=== PATIENT | female | born 1980 | race Caucasian/White ===

== ENCOUNTER → 2016-12-29 | Outpatient (CLI) | payer MEDICARE, MEDICAID | END | disposition home or self-care (01) | LOC: RAD.S 13:58 | DX: N92.0 Excessive and frequent menstruation with regular cycle (principal); N83.01 Follicular cyst of right ovary ==

== ENCOUNTER 2017-04-03 06:46 | Day surgery (SDC) | payer MEDICARE, MEDICAID ==
[~2017-04-03] VITALS: Ht 157.5 cm; Wt 129.3 kg
--- NOTE | 2017-04-23 09:27 | HP ---
ADMIT: 04/03/2017 RM/LOC: [facility] MR#: [id number] [facility]#: [id number] [address] [facility] [address] [place] [id number] MOIRA JOHN [address] [place] [address] Pre-OP History and Physical SEX: F AGE: 36 : 1980 DATE OF SERVICE: CHIEF COMPLAINT: Heavy and painful periods. HISTORY OF PRESENT ILLNESS: This is a 36-year-old female, 6, para 4, AB 2, who initially presented to the clinic for her annual exam. At that time, she did desire her Mirena IUD removed and replaced. Upon further examination, the Mirena IUD was not found to be in her uterus. X-ray confirmed that this was not found in the abdominal or pelvic cavity either. She did report heavy and painful periods at the time of her annual; therefore, once it was deemed that her IUD was not present, she did undergo an endometrial biopsy that showed fragments of benign proliferative endometrium and polypoid fragments of endometrium suggestive of an endometrial polyp. We did discuss treatment options for her heavy periods. Given that it is unknown at what point her IUD fell out, she would like to try replacing the IUD; however, prior to this, she has agreed to a hysteroscopy with D and C and polypectomy. PAST MEDICAL HISTORY: Significant for schizoaffective disorder, depression, seizure disorder, spinal stenosis, and asthma. PAST SURGICAL HISTORY: She had a gastric bypass in 2003, left knee surgery in 2003, right knee surgery in 2009, back surgery x2 in 2005, and cerclage placement x3. SOCIAL HISTORY: She is . She denies tobacco, alcohol, or drug use. ALLERGIES: WELLBUTRIN AND LAMICTAL. CURRENT MEDICATIONS: Vitamin D. 1. Topamax 50 mg daily. 2. Gold River 150 mg every morning. 3. [place] River 300 mg at bedtime. 4. Clonazepam 1 mg b.i.d. 5. Trintellix 20 mg at bedtime. 6. Celebrex 100 mg daily. 7. Latuda 120 mg at bedtime. 8. Flexeril 10 mg at bedtime. 9. Zyrtec 10 mg daily. 10.BuSpar 10 mg t.i.d. 11.Lisinopril/hydrochlorothiazide 20/25 mg at bedtime. 12.Ropinirole 0.5 mg at bedtime. 13.Gabapentin 100 mg b.i.d. 14.Omeprazole 40 mg daily. 15.Tramadol 50 mg as needed. 16.Potassium supplement daily. 17.Vitamin B12 daily. REVIEW OF SYSTEMS: GENERAL: She denies any recent weight gain, weight loss, ADMIT: 04/03/2017 RM/LOC: [facility] MR#: [id number] [address] [id number] MOIRA JOHN [address] [place] [address] Pre-OP History and Physical SEX: F AGE: 36 : 1980 fevers, or chills. HEENT: She denies headaches, vision changes, difficulty swallowing, or sore throat. NECK: She denies neck pain or stiffness. RESPIRATORY: She denies coughing, shortness of breath, or wheezing. CARDIOVASCULAR: She denies chest pain, palpitations, or shortness of breath. GASTROINTESTINAL: She denies abdominal pain, nausea, vomiting, constipation, diarrhea, and blood in her stools. FEMALE GENITOURINARY: She does have heavy and painful periods as per HPI. She denies pelvic pain, dysuria, frequency, urgency, or hematuria. MUSCULOSKELETAL: She denies joint pain, muscle pain, or muscle weakness. NEUROLOGIC: She denies dizziness or weakness in her extremities. ENDOCRINE: She denies history of thyroid disorders. HEMATOLOGIC: She denies history of anemia, blood clots, prolonged or spontaneous bleeding. PHYSICAL EXAMINATION: VITAL SIGNS: Height is 62 inches, weight 287 pounds, body mass index of 52.5, and blood pressure is 126/60. GENERAL: This is a pleasant female, in no acute distress. HEENT: Head is normocephalic and atraumatic. Pupils are equal, round, react to light and accommodation. Extraocular muscles are intact. NECK: Supple. HEART: Regular rate and rhythm. LUNGS: Clear bilaterally. ABDOMEN: Soft, nontender, nondistended, and obese. EXTREMITIES: Nontender. PELVIC: She has normal female external genitalia. Bartholin, urethral, and Doral glands are normal. The vulva and vagina are normal. The uterus feels anteverted. Size is difficult to assess secondary to body habitus. There are ADMIT: 04/03/2017 RM/LOC: [facility] MR#: [id number] [address] [place] [id number] MOIRA JOHN [address] [facility] [place] [address] Pre-OP History and Physical SEX: F AGE: 36 : 1980 no palpable adnexal masses. IMPRESSION: This is a 36-year-old female, 6, para 4, with menorrhagia, dysmenorrhea, and endometrial polyp suggested by endometrial biopsy. PLAN: At this time, we do plan to proceed with a hysteroscopy with removal of a polyp that is present and dilatation and curettage. The risks, benefits, and alternatives have been discussed with the patient including, but not limited to the risk for bleeding, infection, potential for perforation of the uterus and injury to the nearby organs including the bowel and bladder. All of her questions have been answered, and she agrees to proceed. Becky Oseguera MD/ jessica JOB #: [id number] CC: Becky Oseguera, Attending Physician UNKNOWN, Family Physician
--- NOTE | 2017-04-23 09:27 | OR ---
ADMIT: 04/03/2017 RM/LOC: [facility] MR#: [id number] [address] [address] MOIRA JOHN [address] [place] [address] Operative/Delivery Room Report SEX: F AGE: 36 : 1980 SURGERY DATE: 04/03/2017 SURGEON: Becky Oseguera MD PREOPERATIVE DIAGNOSES: 1. Menorrhagia. 2. Possible endometrial polyp. POSTOPERATIVE DIAGNOSIS: Menorrhagia. PROCEDURE: Hysteroscopy with D and C. ANESTHESIA: General. COMPLICATIONS: None. ESTIMATED BLOOD LOSS: 10 mL. FLUIDS: Crystalloid. INDICATIONS: This is a 36-year-old female, who was seen and evaluated in the office with complaints of menorrhagia. She did have an endometrial biopsy that did show possible fragments of a polyp. We did discuss proceeding with a hysteroscopy and polypectomy prior to placement of the Mirena IUD. We reviewed the risks, benefits, and alternatives. She agreed to these and the procedure. PROCEDURE NOTE: The patient was properly identified. Informed consent was obtained. She was then taken to the operating room where general anesthesia was established. She was then placed in the dorsal lithotomy position and prepped and draped in the usual sterile fashion. Her bladder was emptied using a red Cheema catheter. A weighted speculum was placed in the vagina. She did have a fairly significant rectocele noted at this time. The cervix was then visualized with the right angle retractor and a tenaculum was placed ADMIT: 04/03/2017 RM/LOC: [facility] MR#: [id number] [address] [address] MOIRA JOHN [address] [place] [address] Operative/Delivery Room Report SEX: F AGE: 36 : 1980 on the anterior portion of the cervix. With traction, the uterus descended to approximately 3 cm inside the introitus. The cervix was then dilated. The hysteroscope was then advanced to the uterine fundus. The cavity was inspected and I did not see any evidence of a polyp. The ostia were visualized. The hysteroscope was removed. Sharp curettings were then obtained to send endometrial tissue to the pathology. Anterior tenaculum was then removed off the anterior portion of the cervix. The tenaculum sites were made hemostatic with pressure. The retractors were then removed from the patient's vagina. The patient tolerated the procedure well. Sponge, lap, needle, and instrument counts were correct. For the hysteroscopic portion of the procedure, there was approximately 400 mL deficit of crystalloid solution. The patient was taken to the recovery room in stable condition. Becky Oseguera MD/ jessica JOB #: [id number] CC: Becky Oseguera, Attending Physician Desi Stark, Family Physician
== END 2017-04-03 14:08 | disposition home or self-care (01) ==
LOC: SSS 06:46
PROC: 0UDB8ZX Extraction of Endometrium, Via Natural or Artificial Opening Endoscopic, Diagnostic (ICD-10-PCS; principal; 2017-04-03)
DX: N92.0 Excessive and frequent menstruation with regular cycle (principal); J45.909 Unspecified asthma, uncomplicated; I10 Essential (primary) hypertension; K21.9 Gastro-esophageal reflux disease without esophagitis; E66.9 Obesity, unspecified; F32.9 Major depressive disorder, single episode, unspecified; Z98.890 Other specified postprocedural states; Z88.8 Allergy status to other drugs, medicaments and biological substances; Z79.899 Other long term (current) drug therapy

== ENCOUNTER → 2017-04-22 | Outpatient (CLI) | payer MEDICARE, MEDICAID | END | disposition home or self-care (01) | LOC: RAD.S 07:54 | DX: Z48.815 Encounter for surgical aftercare following surgery on the digestive system (principal); Z98.84 Bariatric surgery status ==